=== PATIENT | female | born 1990 | race Two or more races ===

== ENCOUNTER → 2024-03-01 | Outpatient (CLI) | payer OTHER, SELFPAY ==
[2024-03-02 08:48] LABS: BVAG Candida Negative (Negative); Bacterial Vaginosis Markers Negative (Negative); Candida glabrata Negative (Negative); Candida krusei PCR Negative (Negative); Trichomonas Negative (Negative)
== END | disposition home or self-care (01) ==
PROVIDERS: Referring Provider Specialist; Visit Provider Specialist
DX: B37.31 Acute candidiasis of vulva and vagina (principal); N76.0 Acute vaginitis; A59.01 Trichomonal vulvovaginitis
CPT/HCPCS: 81514

== ENCOUNTER → 2024-03-01 | Outpatient (CLI) | payer OTHER, SELFPAY ==
[2024-03-01 12:25] LABS: Beta HCG,Quantitative 16186 mIU/mL (<5.0)
[2024-03-08 06:50] LABS: Progesterone,LC/MS* 12.8 ng/mL
== END | disposition home or self-care (01) ==
LOC: COPL 10:11
PROVIDERS: PCP Internal Medicine; Referring Provider Specialist; Visit Provider Specialist
DX: N91.1 Secondary amenorrhea (principal)
CPT/HCPCS: 36415; 84144; 84702

== ENCOUNTER → 2024-03-12 | Outpatient (CLI) | payer OTHER, SELFPAY ==
[2024-03-12 10:38] LABS: Quantiferon-TB* See Sep Rpt
[2024-03-12 11:19] LABS: Collection Type, Urine Clean Catch
[2024-03-12 11:43] LABS: Basophils # (Auto) 0.1 Thou/mm3 (0.0-0.2); Basophils % (Auto) 1 % (0-2.5); Eosinophils # (Auto) 0.1 Thou/mm3 (0.0-0.5); Eosinophils % (Auto) 1 % (0-10); Hematocrit 37.3 % (36.0-46.0); Hemoglobin 12.5 g/dL (12.0-16.0); Immature Granulocytes % (Auto) 0 % (0-0); Immature Granulocytes Auto 0.03 Thou/mm3 (0.00-0.00); Lymphocytes # (Auto) 1.8 Thou/mm3 (1.0-4.8); Lymphocytes % (Auto) 22 % (10-50); Mean Corpuscular HGB Conc 33.5 g/dl (31.0-37.0); Mean Corpuscular Hemoglobin 28.1 pg (25.0-35.0); Mean Corpuscular Volume 84 fL (80-100); Monocytes # (Auto) 0.4 Thou/mm3 (0.0-0.8); Monocytes % (Auto) 5 % (0-12); Neutrophils # (Auto) 5.8 Thou/mm3 (1.8-7.7); Neutrophils % (Auto) 71 % (37-80); Nucleated Red Blood Cell % 0 /100 WBC (0); Platelet Count 298 Thou/mm3 (140-440); RDW Standard Deviation 40.4 fL (36.4-46.3); Red Blood Count 4.45 Miln/mm3 (4.00-5.20); White Blood Count 8.3 Thou/mm3 (3.6-11.0)
[2024-03-12 11:48] LABS: Bacteria,Urine Rare; Bilirubin,Urine Negative (Negative); Blood,Urine Negative (Negative); Clarity,Urine Clear (Clear/Hazy); Color,Urine Lt-Yellow (Lt Yel-Yel); Glucose, Urine Negative (Negative); Ketones,Urine Negative (Negative); Leukocyte Esterase,Urine Negative (Negative); Nitrite,Urine Negative (Negative); Protein,Urine Negative (Neg - Trace); RBC,Urine 1 /hpf (0-3); Specific Gravity,Urine 1.018 (1.001-1.035); Squamous Epithelial Cell,Urine 2 /hpf (0-5); Urobilinogen,Urine Negative mg/dL (0.0-1.0); WBC,Urine 1 /hpf (0-5)
[2024-03-12 11:54] LABS: Glucose Estimated Average 91 mg/dL (80-131); Hemoglobin A1C 4.8 % Hgb (4.8-6.0)
[2024-03-12 11:59] LABS: Amphetamine/Methamp Scrn,U Negative (Negative); Barbiturate Screen,Urine Negative (Negative); Benzodiazepines Screen,Urine Negative (Negative); Benzoylecgonine Screen, Ur Negative (Negative); Fentanyl Screen,Urine Negative (Negative); Opiate Screen,Urine Negative (Negative); THC Screen,Urine Negative (Negative)
[2024-03-12 12:03] LABS: Creatinine (Component) 0.6 mg/dL (0.6-1.3); Glucose 87 mg/dL (74-106); eGFR > 60 See Note
[2024-03-12 12:12] LABS: HIV (1&2) Antibody Rapid Non-Reactive
[2024-03-12 12:13] LABS: Hepatitis B Surface Antigen Non Reactive (Non React); Rubella, IgG Antibody Reactive (Immune)
[2024-03-12 12:34] LABS: Beta HCG,Quantitative 67681 mIU/mL (<5.0)
[2024-03-15 19:50] LABS: HCV RNA, PCR <15 NOT DETECTED IU/mL
[2024-03-18 06:40] LABS: HCV RNA, PCR Log IU <1.18 NOT DETECTED Log IU/mL; HIV Ag/Ab, 4th Gen NON-REACTIVE
== END | disposition home or self-care (01) ==
LOC: COPL 10:13
PROVIDERS: PCP Internal Medicine; Referring Provider Specialist; Visit Provider Specialist
DX: Z34.81 Encounter for supervision of other normal pregnancy, first trimester (principal)
CPT/HCPCS: 36415; 80307; 81001; 82565; 82947; 83036; 84702; 85025; 86480; 86703; 86762; 86850; 86900; 86901; 87086; 87340; 87389; 87522

== ENCOUNTER → 2024-04-01 | Outpatient (CLI) | payer OTHER, SELFPAY ==
[2024-04-01 09:38] LABS: Misc Send Out* See Sep Rpt
[2024-04-01 10:52] LABS: Basophils # (Auto) 0.1 Thou/mm3 (0.0-0.2); Basophils % (Auto) 1 % (0-2.5); Eosinophils # (Auto) 0.1 Thou/mm3 (0.0-0.5); Eosinophils % (Auto) 1 % (0-10); Hematocrit 39.6 % (36.0-46.0); Hemoglobin 13.2 g/dL (12.0-16.0); Immature Granulocytes % (Auto) 1 % (0-0); Immature Granulocytes Auto 0.05 Thou/mm3 (0.00-0.00); Lymphocytes # (Auto) 2.1 Thou/mm3 (1.0-4.8); Lymphocytes % (Auto) 24 % (10-50); Mean Corpuscular HGB Conc 33.3 g/dl (31.0-37.0); Mean Corpuscular Volume 84 fL (80-100); Monocytes # (Auto) 0.5 Thou/mm3 (0.0-0.8); Monocytes % (Auto) 6 % (0-12); Neutrophils # (Auto) 5.9 Thou/mm3 (1.8-7.7); Neutrophils % (Auto) 67 % (37-80); Nucleated Red Blood Cell % 0 /100 WBC (0); Platelet Count 317 Thou/mm3 (140-440); RDW Standard Deviation 40.9 fL (36.4-46.3); Red Blood Count 4.71 Miln/mm3 (4.00-5.20); White Blood Count 8.8 Thou/mm3 (3.6-11.0)
[2024-04-01 11:07] LABS: Follicle Stimulating Hormone 0.39 mIU/mL (See Note)
[2024-04-01 11:32] LABS: Alanine Aminotransferase 12 U/L (10-49); Albumin, Serum 4.4 gm/dL (3.5-5.0); Albumin/Globulin Ratio 1.8 (1.2-2.2); Alkaline Phosphatase 73 U/L (46-116); Anion Gap 9 (7-16); Aspartate Amino Transferase 12 U/L (0-34); BUN/Creatinine Ratio 13 Ratio (12-20); Bilirubin,Total 0.4 mg/dL (0.3-1.2); Blood Urea Nitrogen 8 mg/dL (9-23); Calcium 9.4 mg/dL (8.3-10.6); Calcium (Corrected) 9.4 mg/dL (8.5-10.1); Carbon Dioxide 25.5 mMol/L (20.0-31.0); Chloride 102 mMol/L (98-107); Creatinine (Component) 0.6 mg/dL (0.6-1.3); Free T4 (Free Thyroxine) 1.15 ng/dL (0.89-1.76); Globulin 2.4 gm/dL (2.3-3.5); Glucose 91 mg/dL (74-106); Osmolality,Calculated 270 (275-295); Sodium 136 mMol/L (136-145); Thyroid Stimulating Hormone 1.32 uIU/mL (0.55-4.78); Total Protein 6.8 gm/dL (5.7-8.2); eGFR > 60 See Note
[2024-04-05 06:52] LABS: ACTH, Plasma* 7 pg/mL (6-50); Estradiol, Ultrasensitive* 1111 pg/mL
[2024-04-19 13:20] LABS: Albumin 3.9 g/dL (3.6-5.1); Cortisol,total,LC/MS/MS* 10.6 mcg/dL; Luteinizing Hormone* <0.2 mIU/mL; Progesterone,LC/MS* 18.2 ng/mL; Prolactin* 28.1 ng/mL; Sex Hormone Binding Globulin* 196 nmol/L (17-124); Testosterone, Bioavailable 3.4 ng/dL (0.5-8.5); Testosterone, Free 1.9 pg/mL (0.2-5.0); Testosterone,Total 77 ng/dL (2-45)
[2024-04-19 13:23] LABS: SHBG DUPLICATE ORDER
== END | disposition home or self-care (01) ==
LOC: COPL 09:03
PROVIDERS: PCP Internal Medicine; Referring Provider Specialist; Visit Provider Internal Medicine Endocrinology, Diabetes & Metabolism
DX: E24.9 Cushing's syndrome, unspecified (principal); E28.2 Polycystic ovarian syndrome; N97.9 Female infertility, unspecified; Z34.81 Encounter for supervision of other normal pregnancy, first trimester
CPT/HCPCS: 36415; 80053; 80299; 81220; 82024; 82040; 82397; 82533; 82670; 83001; 83002; 84144; 84146; 84270; 84403; 84439; 84443; 85025

== ENCOUNTER → 2024-05-31 | Outpatient (CLI) | payer OTHER, SELFPAY ==
--- NOTE | 2024-05-31 11:33 | XR_ITS ---
Examination: Duplex scan of the lower extremity, unilateral left Date and time of exam: May 31, 2024 1138 hours INDICATIONS: Left leg swelling beginning 2 weeks ago Technique: Duplex scan of the extremity veins using B-mode/grayscale imaging and Doppler spectral analysis and color flow Attention is directed to internal echogenicity, compression and augmentation involving these veins, color flow assessment, spectral analysis Findings: Major deep venous structures in the extremity demonstrate normal course and caliber. There is no evidence of deep vein thrombosis. Normal color flow and spectral analysis Impression: Negative for DVT..
== END | disposition home or self-care (01) ==
LOC: CDIM 10:54
PROVIDERS: PCP Internal Medicine; Referring Provider Physician Assistant Medical; Visit Provider Physician Assistant Medical
DX: R60.0 Localized edema (principal)
CPT/HCPCS: 93971

== ENCOUNTER → 2024-06-03 | Outpatient (CLI) | payer OTHER, SELFPAY ==
[2024-06-03 17:05] LABS: Alanine Aminotransferase 14 U/L (10-49); Albumin, Serum 3.5 gm/dL (3.5-5.0); Albumin/Globulin Ratio 1.4 (1.2-2.2); Alkaline Phosphatase 74 U/L (46-116); Anion Gap 8 (7-16); Aspartate Amino Transferase 12 U/L (0-34); BUN/Creatinine Ratio 12 Ratio (12-20); Bilirubin,Total 0.2 mg/dL (0.3-1.2); Blood Urea Nitrogen 6 mg/dL (9-23); Calcium 8.9 mg/dL (8.3-10.6); Calcium (Corrected) 9.3 mg/dL (8.5-10.1); Carbon Dioxide 23.8 mMol/L (20.0-31.0); Chloride 105 mMol/L (98-107); Creatinine (Component) 0.5 mg/dL (0.6-1.3); Globulin 2.5 gm/dL (2.3-3.5); Glucose 99 mg/dL (74-106); Osmolality,Calculated 271 (275-295); Sodium 137 mMol/L (136-145); eGFR > 60 See Note
[2024-06-09 22:06] LABS: Chenodeoxycholic Acid* 1.8 umol/L (< OR = 3.9); Cholic Acid* 0.7 umol/L (< OR = 2.8); Deoxycholic Acid* 2.2 umol/L (< OR = 2.3)
[2024-06-10 06:54] LABS: Gamma Glutamyl Transpeptidase* 5 U/L (3-50); Total Bile Acids 4.7 umol/L (< OR = 8.3)
== END | disposition home or self-care (01) ==
LOC: SLDO 14:44
PROVIDERS: Referring Provider Physician Assistant Medical; Visit Provider Physician Assistant Medical
DX: L29.9 Pruritus, unspecified (principal)
CPT/HCPCS: 36415; 80053; 82977; 83789

== ENCOUNTER → 2024-06-28 | Outpatient (CLI) | payer OTHER, SELFPAY ==
[2024-06-29 08:09] LABS: BVAG Candida Negative (Negative); Bacterial Vaginosis Markers Negative (Negative); Candida glabrata Negative (Negative); Candida krusei PCR Negative (Negative); Trichomonas Negative (Negative)
== END | disposition home or self-care (01) ==
LOC: SLDO 14:54
PROVIDERS: Referring Provider Specialist; Visit Provider Specialist
DX: N76.0 Acute vaginitis (principal); A59.01 Trichomonal vulvovaginitis; B37.89 Other sites of candidiasis
CPT/HCPCS: 81514

== ENCOUNTER → 2024-07-29 | Outpatient (CLI) | payer OTHER, SELFPAY ==
[2024-07-29 17:21] LABS: Glucose,1 Hour PP 50gm Dose 97 mg/dL (80-140)
== END | disposition home or self-care (01) ==
LOC: SLDO 15:27
PROVIDERS: Referring Provider Specialist; Visit Provider Specialist
DX: Z34.82 Encounter for supervision of other normal pregnancy, second trimester (principal)
CPT/HCPCS: 36415; 82950

== ENCOUNTER → 2024-08-09 | Outpatient (CLI) | payer OTHER, SELFPAY ==
[2024-08-09 11:39] LABS: Basophils # (Auto) 0.1 Thou/mm3 (0.0-0.2); Basophils % (Auto) 1 % (0-2.5); Eosinophils # (Auto) 0.1 Thou/mm3 (0.0-0.5); Eosinophils % (Auto) 2 % (0-10); Hemoglobin 11.5 g/dL (12.0-16.0); Immature Granulocytes % (Auto) 1 % (0-0); Immature Granulocytes Auto 0.08 Thou/mm3 (0.00-0.00); Lymphocytes # (Auto) 1.7 Thou/mm3 (1.0-4.8); Lymphocytes % (Auto) 17 % (10-50); Mean Corpuscular HGB Conc 34.8 g/dl (31.0-37.0); Mean Corpuscular Hemoglobin 28.6 pg (25.0-35.0); Mean Corpuscular Volume 82 fL (80-100); Monocytes # (Auto) 0.6 Thou/mm3 (0.0-0.8); Monocytes % (Auto) 6 % (0-12); Neutrophils # (Auto) 7.1 Thou/mm3 (1.8-7.7); Neutrophils % (Auto) 74 % (37-80); Nucleated Red Blood Cell % 0 /100 WBC (0); Platelet Count 246 Thou/mm3 (140-440); RDW Standard Deviation 39.4 fL (36.4-46.3); Red Blood Count 4.02 Miln/mm3 (4.00-5.20); White Blood Count 9.6 Thou/mm3 (3.6-11.0)
[2024-08-09 12:05] LABS: Alanine Aminotransferase 7 U/L (10-49); Aspartate Amino Transferase 13 U/L (0-34)
[2024-08-09 12:13] LABS: Syphilis Nonreactive (Nonreactive)
[2024-08-13 17:50] LABS: Chenodeoxycholic Acid* <0.5 umol/L (< OR = 3.9); Cholic Acid* <0.5 umol/L (< OR = 2.8); Deoxycholic Acid* <0.5 umol/L (< OR = 2.3)
[2024-08-14 06:47] LABS: Total Bile Acids <1.5 umol/L (< OR = 8.3)
== END | disposition home or self-care (01) ==
LOC: COPL 10:59
PROVIDERS: PCP Internal Medicine; Referring Provider Specialist; Visit Provider Specialist
DX: Z34.83 Encounter for supervision of other normal pregnancy, third trimester (principal); L29.9 Pruritus, unspecified
CPT/HCPCS: 36415; 83789; 84450; 84460; 85025; 86780

== ENCOUNTER → 2024-09-26 | Outpatient (CLI) | payer OTHER, SELFPAY ==
[2024-09-27 09:13] LABS: BVAG Candida Negative (Negative); Bacterial Vaginosis Markers Negative (Negative); Candida glabrata Negative (Negative); Candida krusei PCR Negative (Negative); Trichomonas Negative (Negative)
== END | disposition home or self-care (01) ==
LOC: SLDO 14:43
PROVIDERS: Referring Provider Physician Assistant Medical; Visit Provider Physician Assistant Medical
DX: Z34.83 Encounter for supervision of other normal pregnancy, third trimester (principal)
CPT/HCPCS: 81514

== ENCOUNTER 2024-10-11 22:09 | Observation (INO) | payer OTHER, SELFPAY ==
[2024-10-11] VITALS (14 sets, daily range): BP systolic 129–161; BP diastolic 72–91; PULSE 74–95; RESP 18–99; TEMP 37; O2SAT 94–100; BMI 40.5
== END 2024-10-11 23:30 | disposition home or self-care (01) ==
PROVIDERS: Admitting Provider Specialist; Visit Provider Specialist
DX: O36.8130 Decreased fetal movements, third trimester, not applicable or unspecified (principal); Z3A.38 38 weeks gestation of pregnancy
CPT/HCPCS: 59025; 59899

== ENCOUNTER 2024-10-24 22:30 | Inpatient (IN) | payer OTHER, SELFPAY ==
[2024-10-24] VITALS (10 sets, daily range): BP systolic 119–143; BP diastolic 77–86; PULSE 76–93; RESP 18–99; TEMP 36.9; O2SAT 96–100; BMI 38.9
[2024-10-25] VITALS (210 sets, daily range): BP systolic 103–151; BP diastolic 56–91; PULSE 40–117; RESP 16–20; TEMP 36.5–36.8; O2SAT 88–100
[2024-10-25 00:29] LABS: Basophils % (Auto) 0 % (0-2.5); Eosinophils # (Auto) 0.1 Thou/mm3 (0.0-0.5); Eosinophils % (Auto) 1 % (0-10); Hematocrit 35.2 % (36.0-46.0); Hemoglobin 12.6 g/dL (12.0-16.0); Immature Granulocytes % (Auto) 1 % (0-0); Immature Granulocytes Auto 0.06 Thou/mm3 (0.00-0.00); Lymphocytes # (Auto) 2.2 Thou/mm3 (1.0-4.8); Lymphocytes % (Auto) 18 % (10-50); Mean Corpuscular HGB Conc 35.8 g/dl (31.0-37.0); Mean Corpuscular Hemoglobin 29.3 pg (25.0-35.0); Mean Corpuscular Volume 82 fL (80-100); Monocytes # (Auto) 0.9 Thou/mm3 (0.0-0.8); Monocytes % (Auto) 7 % (0-12); Neutrophils # (Auto) 9.1 Thou/mm3 (1.8-7.7); Neutrophils % (Auto) 74 % (37-80); Nucleated Red Blood Cell % 0 /100 WBC (0); Platelet Count 253 Thou/mm3 (140-440); RDW Standard Deviation 40.1 fL (36.4-46.3); White Blood Count 12.4 Thou/mm3 (3.6-11.0)
[2024-10-25] MEDS: RINGERS LACTATED 1000 ML 1,000 ML 100 ML IV (00:30)
[2024-10-25] MEDS: Ampicillin Inj 2,000 MG in SODIUM CHLORIDE 0.9% (POP) 100 ML 200 MG IV (00:30)
--- NOTE | 2024-10-25 00:52 | PD.LDHP ---
Documentation for date of: 10/25/24 OB Labor/Induct. HPI History of Present Illness Chief complaint: painful contractions : 2 Para: 0 Term pregnancies: 0 pregnancies: 0 Living children: 0 History of Abortions: Spontaneous and Elective: 1 History of Vaginal deliveries: 0 History of sections: No History of : No Date of last menstrual period: 10/20/24 QUIN: 10/20/24 Gestational Age (weeks): 40 Gestational Age (days): 5 Gestational age based on last menstrual period: 0 History of present illness: Patient presents for regular, painful ctx. No LOF. No vaginal bleeding. Normal movement. No fevers/chills. History of Present Dating criteria: based on LMP only Adequate Care: Yes Narrative: : early sab G2: current, starting BMI 38.6 taking ASA. Normal 1hr glucola. Labs Maternal Blood Type: O Pos Labs: Positive: Rubella Titre and Negative: RPR, Hepatitis B, HIV and Group Beta Strep Review of Systems Review of Systems Narrative Review of Systems: Review of Systems Systems Reviewed: All systems reviewed, normal except as documented Constitutional Constitutional: Denies body ache(s), Denies chills, Denies fever(s) and Denies headache(s) ENT Ears, Nose, Mouth, and Throat: Denies headache(s) and Denies vertigo Cardiovascular Cardiovascular: Denies chest pain, Denies palpitations, Denies dyspnea and Denies syncope Respiratory Respiratory: Denies cough, Denies dyspnea Gastrointestinal Gastrointestinal: Denies nausea and Denies vomiting Neurologic Neurologic: Denies convulsions, Denies headache(s), Denies other visual disturbances, Denies syncope and Denies vertigo Past Medical History Family History OTHER FAMILY HX: Family hx of T2DM Surgical History SURGICAL: Negative Section OTHER SURGICAL HX: cholecystectomy Social History SOCIAL: No tobacco/ETOH/illicit drug use. Partner is supportive. Past Medical History Comments PMH COMMENT: Obesity Meds Home Medications and Allergies Home Medications ?Medication ?Instructions ?Recorded ?Confirmed ?Type metformin 500 mg tablet 1,000 mg PO BID 05/04/18 10/24/24 History drospirenone 3 mg-ethinyl 1 tab PO QDAY 12/10/18 10/24/24 History estradiol 0.02 mg tablet (LULA (28)) spironolactone 50 mg tablet 50 mg PO QDAY 12/10/18 10/24/24 History (Aldactone) Allergies Allergy/AdvReac Type Severity Reaction Status Date / Time No Known Allergies Allergy Verified 10/24/24 23:01 OB Exam Physical Exam Vital signs: Temp Pulse Resp BP Pulse Ox 98.4 F 75 18 135/86 H 98 10/24/24 22:31 10/25/24 00:36 10/24/24 22:31 10/25/24 00:36 10/24/24 23:58 Detailed Labor and Delivery Exam Dilation (cm): 4 Effacement (%): 75 Cervix position: mid station: -2 Consistency: soft Presentation: Vertex Membranes: intact monitor accelerations: 15x15 monitor decelerations: None intermodal owner operator truck driver variability: Moderate (11-25) Contraction frequency (min): q3-5min OB Results Labs 10/25/24 00:08 Labs: Short CBC 10/25/24 Range/Units 00:08 WBC 12.4 H (3.6-11.0) Thou/mm3 Hgb 12.6 (12.0-16.0) g/dL Hct 35.2 L (36.0-46.0) % Plt Count 253 (140-440) Thou/mm3 OB Assessment & Plan Assessment and Plan (1) Active labor at term: Status: Acute Assessment and plan: Leann is a 34yo with SIUP at 40&5wk presenting in active labor. Regular/painful contractions, SCE changed from 3 to 4cm in triage. Vitals wnl, benign exam. Reassuring assessment. PMhx/ complicated by: Starting BMI 38.6, taking ASA Has PNC with Dr. Gray's office Plan: -Admit to L&D -Establish IV, routine labs -CEFM -Clear liquid diet -Sports Medicine [place]/consent re: -GBS status: positive. Ampicillin per protocol. -Anticipate -Safe to proceed
[2024-10-25 01:09] LABS: Syphilis Nonreactive (Nonreactive)
[2024-10-25] MEDS: Ampicillin Inj 1,000 MG in SODIUM CHLORIDE 0.9% (Popper) 50 ML 50 MG IV ×2 (04:32→08:46)
[2024-10-25] MEDS: FAMOTIDINE INJ 10 MG/ML VIAL 2 ML 20 MG IVP (04:34)
--- NOTE | 2024-10-25 07:58 | PD.LDPN ---
Documentation for date of: 10/25/24 OB Labor Progress Note Pain Control Pain control: tolerating well and epidural Comments: Patient is a 34-year-old -0-1-0 at 39 weeks all care uncomplicated with Dr Gray who presented in labor. She is positive for group B strep and has had 2 doses of ampicillin. She was turned over to me at 7 AM. I examined the patient she was 8 cm by AROM to clear fluid and IUPC placed at 7:45 AM. Cervix is 8/90/-1 Pelvic Exam Dilation (cm): 8 Effacement (%): 90 station: -1 Amniotic membrane status: Ruptured Comments: AROM clear fluid IUPC placed at 7:45 AM Contractions Monitor mode: External Contraction frequency: irregular Contraction intensity: Moderate Status status: Category l Assessment and Plan Assessment: active labor Plan OB labor note: continuous present management and begin Pitocin augmentation Comments: If contractions begin Pitocin augmentation
[2024-10-25] MEDS: OXYTOCIN in NS 30 units 30 UNIT/500 ML BAG IV (08:47)
[2024-10-25] MEDS: OXYTOCIN in NS 20 units 20 UNIT/1,000 ML BAG 125 UNIT IV (14:59)
[2024-10-25] MEDS: BENZO/LANO/ALOE (Dermoplast) 60 GM CAN 1 SPRAY TOP (16:35)
[2024-10-25] MEDS: IBUPROFEN TAB 400 MG TABLET 800 MG PO (16:36)
--- NOTE | 2024-10-25 18:13 | OBDSUM_ITS ---
Data (Ptety) Data Hx Section: No Maternal Blood Type: O Pos Rubella Titre: Positive RPR: Non-reactive Labs: Positive: Group Beta Strep and Negative: RPR, Hepatitis B, HIV, Chlamydia and Gonorrhea : 2 Term: 0 : 0 Livin Abortions: Spontaneous & Theraputic: 1 Delivery Data (Pet[place]) Labor Data Initiation of labor: Augmentation Induction/Augmentation Agent: Cytotec-PO and Pitocin ROM date: 10/25/24 ROM time: 07:56 Amniotic membrane rupture type: Artificial Amniotic fluid description: Clear Delivery Data EDC: 10/20/24 EDC calculated by:: LMP/early US confirmation Date of arrival to unit: 10/24/24 Onset of labor date: 10/24/24 Onset of labor time: 23:54 Complete dilation date: 10/25/24 Complete dilation time: 13:35 delivery date: 10/25/24 delivery time: 14:31 Gestational age (weeks): 40 Gestational age (days): 5 Placenta delivery date: 10/25/24 Placenta delivery time: 14:37 Stage 1 total time: Labor - Stage 1 Duration 13 hours and 41 minutes Delivered by: Dr. Covarrubias Delivery nurse: Marshal Garner RN [place] nurse: Rubia MALCOLM Roading Engineer at delivery: No Support person(s) at delivery: FOB, Pt mother Other staff at delivery: Bridgett Briceno maintenance of way superintendent Method Delivery method: Normal Vaginal Delivery Presentation: Vertex position: OA Anesthesia Type Anesthesia Type: Epidural Placenta Placenta delivery description: Spontaneous Cord blood sent to lab: Yes cord blood collection: Cord Blood Type Episiotomy Episiotomy description: Right Mediolateral Perineal repair Sutures used for repair: 4.0 Chromic and other (2-0 chromic) EBL Estimated blood loss (ml): 150 Umbilical Cord cord description: 3 Vessels and Nuchal Cord Additional Procedures The patient is a 34-year-old -0-1-0 with all care uncomplicated Dr Gray. She was admitted 10/24/2024 for an induction of labor secondary to postdates. The patient progressed to complete and +2. She pushed approximately 15 minutes and I was called over from the office for delivery. Patient rested for about 4-5 contractions waiting for me to come across the street, and then pushed again for about 10 more minutes minutes delivering a liveborn female. Findings :liveborn female in the MICHAELA presentation with a loose nuchal cord x 1 and a body cord x 1. Apgars were 9 and 9. Weight was 7 pounds 2 ounces. During delivery a small mediolateral episiotomy was cut secondary to decelerations with pushing. The placenta was complete spontaneous and grossly normal delivering approximately 2 to 3 minutes after the baby delivered. Her small episiotomy was repaired in a standard fashion using 2-0 and 4-0 chromic. EBL was 150 cc. Complications were none. Condition: Mom and were in stable condition in the delivery room. Complications Complications: None [place] Data ([place]ty) [place] Data order: 1 [place]'s gender: Female Identification band number: [id number] weight (gms): 3235 g Weight (pounds): 7 lbs and 2.1 ozs [place] length: 49 cm 1 minute: 9 5 minutes: 9
[2024-10-26 05:24] VITALS: BP 105/64; PULSE 83; RESP 18; TEMP 36.8; O2SAT 99
--- NOTE | 2024-10-26 07:12 | PD.LDPPPRG ---
Subjective Subjective Interval history: Delivery type: Patient doing well this morning. No acute complaints. Ambulating, tolerating p.o. and voiding without difficulty. HTN/Pre-Eclampsia screen: No chest pain, shortness of breath, headache, visual changes, epigastric or right upper quadrant pain. Breast-feeding, lochia diminishing. Bowel: Flatus+/ BM+ Exam Vital Signs Temp Pulse Resp BP Pulse Ox O2 Del Method 98.3 F 83 18 105/64 99 Room Air 10/26/24 05:24 10/26/24 05:10/26/24 05:24 10/26/24 05:24 10/26/24 05:24 10/26/24 05:24 Constitutional Constitutional: no acute distress Routine HEENT Exam Head: Present normocephalic and atraumatic Eye: Present EOMI and PERRL ENT: Present mucous membranes moist Routine Neck Exam Neck: Present supple and trachea midline Routine Respiratory Exam Respiratory: Present chest non-tender, lungs clear, normal breath sounds and no resp distress Routine Cardiovascular Exam Cardiovascular: Present RRR Routine Abdominal Exam Abdominal: Present soft and normoactive bowel sounds Routine Extremities Exam Extremities: Present full ROM Routine Skin Exam Skin: Present intact, dry and warm Routine Neurological Exam Neurological: Present alert, oriented X3 and CN II-XII intact Routine Psychiatric Exam Psychiatric: Present normal affect and normal thought process Objective Labs 10/25/24 00:08 Assessment & Plan Problem List (1) Active labor at term: Status: Acute (2) Vaginal delivery: Status: Acute Assessment and plan: 1. Continue routine /post-op care 2. Labs reviewed, cbc appropriate 3. Remove dressing/Mays 4. Encourage to ambulate, shower 5. Encourage PO intake, breast feeding Time Spent With Patient Time: Total time spent is greater than 50% in coordination of care (as documented) at patient's floor/unit and/or counseling patient:
[2024-10-26 07:38] LABS: Basophils # (Auto) 0.1 Thou/mm3 (0.0-0.2); Basophils % (Auto) 0 % (0-2.5); Eosinophils # (Auto) 0.2 Thou/mm3 (0.0-0.5); Eosinophils % (Auto) 2 % (0-10); Hematocrit 27.8 % (36.0-46.0); Immature Granulocytes % (Auto) 1 % (0-0); Immature Granulocytes Auto 0.08 Thou/mm3 (0.00-0.00); Lymphocytes # (Auto) 2.7 Thou/mm3 (1.0-4.8); Lymphocytes % (Auto) 18 % (10-50); Mean Corpuscular Hemoglobin 29.7 pg (25.0-35.0); Mean Corpuscular Volume 83 fL (80-100); Monocytes # (Auto) 0.9 Thou/mm3 (0.0-0.8); Monocytes % (Auto) 6 % (0-12); Neutrophils # (Auto) 11.2 Thou/mm3 (1.8-7.7); Neutrophils % (Auto) 73 % (37-80); Nucleated Red Blood Cell % 0 /100 WBC (0); Platelet Count 209 Thou/mm3 (140-440); RDW Standard Deviation 41.3 fL (36.4-46.3); Red Blood Count 3.37 Miln/mm3 (4.00-5.20); White Blood Count 15.2 Thou/mm3 (3.6-11.0)
[2024-10-26 08:16] VITALS: BP 115/72; PULSE 81; RESP 16; TEMP 36.8; O2SAT 99
[2024-10-26] MEDS: IBUPROFEN TAB 400 MG TABLET 800 MG PO (08:36)
[2024-10-26 12:24] VITALS: BP 109/68; PULSE 69; RESP 17; TEMP 36.9
== END 2024-10-26 16:00 | disposition home or self-care (01) | DRG 807 ==
LOC: S4SX 10-25 12:31 → S4NX 10-25 17:23
PROVIDERS: Obstetrics & Gynecology; Admitting Provider Obstetrics & Gynecology; Visit Provider Obstetrics & Gynecology
DX: O48.0 Post-term pregnancy (principal); Z37.0 Single live birth; Z3A.40 40 weeks gestation of pregnancy; O76 Abnormality in fetal heart rate and rhythm complicating labor and delivery; O69.81X0 Labor and delivery complicated by cord around neck, without compression, not applicable or unspecified; O69.82X0 Labor and delivery complicated by other cord entanglement, without compression, not applicable or unspecified; O99.824 Streptococcus B carrier state complicating childbirth; Z3A.39 39 weeks gestation of pregnancy
CPT/HCPCS: 36415; 59025; 59409; 59899; 85025; 86780; 86850; 86900; 86901; 94762; J0290; J2590; J2795; J3010; J3490; J7050; J7120; A9270